=== PATIENT | female | born 1970 ===

== ENCOUNTER 2018-05-07 11:00 | Inpatient (IN) | payer MEDICAID, OTHER ==
[2018-05-07 11:41] VITALS: BMI 25.2
[2018-05-07] MEDS ORDERED: Sodium Chloride 0.9% 1,000 ML IV STA (12:48)
[2018-05-07 13:24] LABS: BASO % 0.7 % (0.0-2.0); EOS # 0.1 K/uL (0.0-0.7); HEMOGLOBIN 6.8 g/dL (12.0-16.0); LYMPH # 2.4 K/uL (1.0-4.3); LYMPH % 37.2 % (20.0-40.0); MEAN CORPUSCULAR HEMOGLOBIN 19.1 pg (27.0-31.0); MEAN PLATELET VOLUME 7.9 fl (7.2-11.7); MONO # 0.6 K/uL (0.0-0.8); MONO % 9.6 % (0.0-10.0); NEUT # 3.3 K/uL (1.8-7.0); NEUT % 50.5 % (50.0-75.0); NRBC % 0.1 % (0.0-0.0); RBC 3.56 Mil/uL (3.80-5.20); RED CELL DISTRIBUTION WIDTH 18.1 % (11.5-14.5); WHITE BLOOD COUNT 6.5 K/uL (4.8-10.8)
--- NOTE | 2018-05-07 13:29 | ED PDOC ---
HPI: Female Pain Time Seen by Provider: 05/07/18 12:31 Chief Complaint (Nursing): Female Genitourinary Chief Complaint (Provider): vaginal bleeding History Per: Patient History/Exam Limitations: no limitations Onset/Duration Of Symptoms: Days (x3 weeks) Current Symptoms Are (Timing): Still Present Associated Symptoms: denies: Fever, Chills, Nausea, Vomiting, Diarrhea, Urinary Symptoms Additional Complaint(s): Suha Tapia is a 47 year old female, with a past medical history of anemia, asthma and ovarian cysts, who presents to the emergency department for evaluation of vaginal bleeding onset for x3 weeks. She reports intermittent bleeding at night time. Patient states she has an irregular period but it doesn't last more than x2 weeks prompting ED visit. Patient states she's never had blood transfusion before and takes iron IV for anemia. Patient also reports dizziness described as lightheadedness after she hit her head with the trunk of her car. She denies any dysuria, fever, chills, nausea, vomit, diarrhea, vision changes, abdominal pain, cough, congestion, chest pain, shortness of breath, weakness, numbness or tingling. No further medical complaints. Tetanus is up to date. PMD: Dr. Eliseo Cole. Past Medical History Reviewed: Historical Data, Nursing Documentation, Vital Signs Vital Signs: Last Vital Signs Temp 97.9 F 05/07/18 11:40 Pulse 87 05/07/18 11:40 Resp 18 05/07/18 11:40 BP 117/72 05/07/18 11:40 Pulse Ox 98 05/07/18 11:40 - Medical History PMH: Anemia, Anxiety, Asthma, Kidney Stones - Surgical History Other surgeries: ovarian cysts - Family History Family History: States: Unknown Family Hx - Immunization History Hx Tetanus Toxoid Vaccination: No Hx Influenza Vaccination: No Hx Pneumococcal Vaccination: No - Home Medications Home Medications: Ambulatory Orders Medication Instructions Recorded Montelukast [Singulair] 10 mg PO DAILY 06/17/17 Naproxen 375 mg PO TIDPC #20 tablet 06/17/17 Lorazepam [Ativan] 0.5 mg PO Q12H PRN #6 tab 10/30/17 Meclizine [Meclizine*] 1 tab PO Q6 PRN #30 tab 10/30/17 - Allergies Allergies/Adverse Reactions: Allergies Allergy/AdvReac Type Severity Reaction Status Date / Time shellfish derived Allergy Verified 01/28/18 02:03 seafood Allergy Intermediate RASH Uncoded 01/28/18 02:03 Review of Systems ROS Statement: Except As Marked, All Systems Reviewed And Found Negative Constitutional: Negative for: Fever, Chills Eyes: Negative for: Vision Change ENT: Negative for: Nose Congestion Cardiovascular: Negative for: Chest Pain Respiratory: Negative for: Cough, Shortness of Breath Gastrointestinal: Negative for: Nausea, Vomiting, Abdominal Pain, Diarrhea Genitourinary Female: Positive for: Vaginal Bleeding. Negative for: Dysuria Neurological: Positive for: Dizziness (lightheadedness). Negative for: Weakness, Numbness (tingling) Physical Exam - Reviewed Nursing Documentation Reviewed: Yes Vital Signs Reviewed: Yes - Physical Exam Appears: Positive for: Uncomfortable Head Exam: Positive for: ATRAUMATIC, NORMAL INSPECTION, NORMOCEPHALIC Skin: Positive for: Normal Color, Warm, Dry Eye Exam: Positive for: Normal appearance, EOMI, PERRL ENT: Positive for: Other (1 cm superficial linear laceration to left lateral eyebrow with mild tenderness) Neck: Positive for: Normal, Painless ROM Cardiovascular/Chest: Positive for: Regular Rate, Rhythm. Negative for: Murmur Respiratory: Positive for: Normal Breath Sounds. Negative for: Respiratory Distress Gastrointestinal/Abdominal: Positive for: Normal Exam, Soft. Negative for: Tenderness, Guarding, Rebound Back: Positive for: Normal Inspection. Negative for: L CVA Tenderness, R CVA Tenderness, Vertebral Tenderness Extremity: Positive for: Normal ROM (upper and lower extremities). Negative for: Deformity, Swelling Neurologic/Psych: Positive for: Alert, Oriented, Gait (steady) - Laboratory Results Result Diagrams: 05/07/18 13:13 05/07/18 13:13 Interpretation Of Abn Labs: 6.8 HG - ECG O2 Sat by Pulse Oximetry: 98 (RA) Pulse Ox Interpretation: Normal - Other Rad US X-Ray: Read By Radiologist X-Ray Interpretation: fibroids; structures in uterus - CT Scan/US ct Other Rad Studies (CT/US): Read By Radiologist Other Rad Interpretation: no acute - Progress ED Course And Treament: 1552: Pt. refuses blood transfusion. Aware of possible or decreased functioning from anemia. Wants iron infusion that she has gotten in the past and regularly usually. Pt. aware that is not standard first line treatment for acute anemia. Spoke with Dr. Alexis who admits for Dr. Eliseo Cole. He will admit and wants Dr. Celena Malrow on consult. Pending Call back from Dr. Celena Malrow. 1633: Spoke with Dr. Brenda Marlow. Wants pt. to get venofer 200mg IV piggy back over 30min x 2. Aware of all labs and findings/pt. presentation. Aware pt. does not want blood transfusion. - Critical Care Total Time (In Min): 30 Documented Critical Care: Time excludes all time spent performint seperately billable procedures Medical Decision Making Medical Decision Making: Time: 12:31 Initial Impression: Vaginal bleeding and minor head injury Initial Plan: --Head w/o contrast [CT] --BMP --Urine --Urine dipstick --CBC w/ differential --PTT --PT --Sodium Chloride 1,000 ml IV 1,000 mls/hr --Transvaginal US --Reevaluation 14:[address] FINDINGS: HEMORRHAGE: No intracranial hemorrhage. Hello hello BRAIN: No mass effect or edema. No atrophy or chronic microvascular ischemic changes. VENTRICLES: Unremarkable. No hydrocephalus. CALVARIUM: Unremarkable. PARANASAL SINUSES: Unremarkable as visualized. No significant inflammatory changes. MASTOID AIR CELLS: Unremarkable as visualized. No inflammatory changes. OTHER FINDINGS: None. IMPRESSION: No acute intracranial hemorrhage. 14:09 Transvaginal US FINDINGS: UTERUS: Measures 8.5 x 5.5 x 7.0 cm. Normal in size and appearance. . There are least 2 discrete uterine fibroids 1 measuring 1.0 x 0.7 x 0.9 cm and the 2nd measuring 1.4 x 1.0 x 1.4 cm ENDOMETRIUM: Measures 6.0 mm in diameter. .. There is a somewhat hyperechoic 7.6 cm echogenic focus within the endometrium that could represent clot. The possibility of endometrial hyperplasia, endometrial polyps or less likely endometrial carcinoma. Recommend follow-up PAPER CAP MACHINE OPERATOR consultation; consider hysteros copy CERVIX: Multiple nabothian cysts are present. RIGHT OVARY: Not visualized LEFT OVARY: Measures 1.8 x 1.8 x 1.8 cm. No solid mass. Normal flow. FREE FLUID: No significant free fluid noted. OTHER FINDINGS: None. IMPRESSION: There is a somewhat elliptical shaped 7.6 mm echogenic focus within the endometrial canal which is of uncertain etiology. This could represent clot however endometrial hyperplasia polyps or less likely endometrial carcinoma not excluded. Uterine fibroids are also present. Cervical nabothian cysts are present. Follow-up PAPER CAP MACHINE OPERATOR consultation recommended. Consider hysteroscopy. Right ovary not visualized. Right ovary not visualized. Scribe Attestation: Documented by Nilson Villaseñor, acting as a scribe for Art Marie MD. Provider Scribe Attestation: All medical record entries made by the Scribe were at my direction and personal ly dictated by me. I have reviewed the chart and agree that the record accurately reflects my personal performance of the history, physical exam, medical decision making, and the department course for this patient. I have also personally directed, reviewed, and agree with the discharge instructions and disposition. Disposition - Clinical Impression Clinical Impression: Anemia - Patient ED Disposition Is Patient to be Admitted: Yes Counseled Patient/Family Regarding: Studies Performed, Diagnosis - Disposition Disposition Time: 16:34 Condition: FAIR - Pt Status Changed To: Hospital Disposition Of: Observation - POA Present On Arrival: None
[2018-05-07 13:33] LABS: BLOOD UREA NITROGEN 12 mg/dl (7-17); GFR NON-AFRICAN AMERICAN > 60
[2018-05-07 13:52] LABS: PROTHROMBIN TIME 11.7 Seconds (9.8-13.1)
[2018-05-07 13:55] LABS: PARTIAL THROMBOPLASTIN TIME 29.8 Seconds (25.6-37.1)
--- NOTE | 2018-05-07 14:06 | CT ---
Date of service: 05/07/2018 PROCEDURE: CT HEAD WITHOUT CONTRAST. HISTORY: headache COMPARISON: None available. TECHNIQUE: Axial computed tomography images were obtained through the head/brain without intravenous contrast. Radiation dose: Total exam DLP = 765.04 mGy-cm. This CT exam was performed using one or more of the following dose reduction techniques: Automated exposure control, adjustment of the mA and/or kV according to patient size, and/or use of iterative reconstruction technique. FINDINGS: HEMORRHAGE: No intracranial hemorrhage. Hello hello BRAIN: No mass effect or edema. No atrophy or chronic microvascular ischemic changes. VENTRICLES: Unremarkable. No hydrocephalus. CALVARIUM: Unremarkable. PARANASAL SINUSES: Unremarkable as visualized. No significant inflammatory changes. MASTOID AIR CELLS: Unremarkable as visualized. No inflammatory changes. OTHER FINDINGS: None. IMPRESSION: No acute intracranial hemorrhage.
--- NOTE | 2018-05-07 14:22 | US ---
Date of service: 05/07/2018 HISTORY: vaginal bleeding COMPARISON: None available. TECHNIQUE: Transvaginal sonographic evaluation of the pelvis performed FINDINGS: UTERUS: Measures 8.5 x 5.5 x 7.0 cm. Normal in size and appearance. . There are least 2 discrete uterine fibroids 1 measuring 1.0 x 0.7 x 0.9 cm and the 2nd measuring 1.4 x 1.0 x 1.4 cm ENDOMETRIUM: Measures 6.0 mm in diameter. .. There is a somewhat hyperechoic 7.6 cm echogenic focus within the endometrium that could represent clot. The possibility of endometrial hyperplasia, endometrial polyps or less likely endometrial carcinoma. Recommend follow-up JAVA PROGRAMMER consultation; consider hysteroscopy CERVIX: Multiple nabothian cysts are present. RIGHT OVARY: Not visualized LEFT OVARY: Measures 1.8 x 1.8 x 1.8 cm. No solid mass. Normal flow. FREE FLUID: No significant free fluid noted. OTHER FINDINGS: None. IMPRESSION: There is a somewhat elliptical shaped 7.6 mm echogenic focus within the endometrial canal which is of uncertain etiology. This could represent clot however endometrial hyperplasia polyps or less likely endometrial carcinoma not excluded. Uterine fibroids are also present. Cervical nabothian cysts are present. Follow-up JAVA PROGRAMMER consultation recommended. Consider hysteroscopy. Right ovary not visualized. Right ovary not visualized.
[2018-05-07 15:46] LABS: MEAN CELL VOLUME 63.5 fl (81.0-99.0)
[2018-05-07 18:18] LABS: IRON < 10 ug/dL (37-170)
[2018-05-07 18:43] LABS: % IRON SATURATION 2.21 % (20-55)
[2018-05-07 18:44] LABS: TOTAL IRON BINDING CAPACITY 452 ug/dL (250-450)
[2018-05-07] MEDS: Fluticasone-Salmeterol 250-50mcg Diskus INH SCH (22:27)
[2018-05-08 08:30] LABS: MEAN CELL VOLUME 63.7 fl (81.0-99.0); MEAN CORPUSCULAR HEMOGLOBIN 19.4 pg (27.0-31.0); MEAN CORPUSCULAR HGB CONC 30.5 g/dL (33.0-37.0); RBC 3.35 Mil/uL (3.80-5.20); RED CELL DISTRIBUTION WIDTH 18.3 % (11.5-14.5); WHITE BLOOD COUNT 6.8 K/uL (4.8-10.8)
[2018-05-08 08:39] LABS: HEMOGLOBIN 6.5 g/dL (12.0-16.0)
--- NOTE | 2018-05-08 08:51 | CP.PCM.CON ---
<Jenni Castaneda - Last Filed: 05/08/18 09:27> History of Present Illness - History of Present Illness History of Present Illness: Consult note for TAXONOMIST. Suha is a 47 year old female, with a past medical history of anemia, asthma, panic attacks and depression, we were asked to see her for evaluation of vaginal bleeding onset for x3 weeks. Patient states she has an irregular period since September lasting 1 week but in February she reported period lasted 2 weeks. Patient states regular periods every month previously. Patient also reports mild dizziness but she endorses was yesterday after she hit her head with the trunk of her car. She denies any dysuria, fever, chills, nausea, vomit, diarrhea, vision changes, abdominal pain, chest pain, shortness of breath, weakness, numbness or tingling. No further medical complaints. Patient states she's never had blood transfusion before and takes iron IV for anemia. She follows her primary heme Dr in [place]. She does not have primary CASSANDRA DEVELOPER doctor and endorses last time she saw one was in September and was told she has 2 cyst behind the uterus. PMD: Dr. Eliseo Cole. Heme: Dr Quarles PMH: asthma, anemia, depression and panic attacks TAXONOMIST: , x1 and C/S x1 (twins), Menarche at age 14, no hx of STD, no hx of abnormal Pap smears. PSH: lithotrypsis FMH: mom with DM, CAD Aunt with hx of colon cancer, and other aunt from "blood cancer" Denies family hx of ovarian, breast and uterine cancer. Meds: see bellow Allergies: shellfish, latex SH: denies etoh, tobacco or ilicit drugs use Review of Systems - Review of Systems All systems: reviewed and no additional remarkable complaints except (HPI) Past Patient History - Infectious Disease Hx of Infectious Diseases: None - Past Medical History & Family History Past Medical History?: Yes - Past Social History Smoking Status: Never Smoked - CARDIAC Other/Comment: history of asthma and kidney stones - PULMONARY Hx Asthma: Yes - RENAL Hx Kidney Stones: Yes - HEMATOLOGICAL/ONCOLOGICAL Hx Anemia: Yes Hx Blood Transfusions: No - MUSCULOSKELETAL/RHEUMATOLOGICAL Hx Falls: No - PSYCHIATRIC Hx Anxiety: Yes Hx Substance Use: No - SURGICAL HISTORY Hx Section: Yes Other/Comment: sx kidney stone removal - ANESTHESIA Hx Anesthesia: Yes Hx Anesthesia Reactions: Yes Meds Allergies/Adverse Reactions: Allergies Allergy/AdvReac Type Severity Reaction Status Date / Time shellfish derived Allergy Verified 01/28/18 02:03 seafood Allergy Intermediate RASH Uncoded 01/28/18 02:03 - Medications Medications: Current Medications Iron Sucrose 200 mg/ Sodium (Chloride) 110 mls @ 200 mls/hr IVPB DAILY BECKA Stop: 05/08/18 09:32 Last Admin: 05/07/18 19:54 Dose: 200 mls/hr Montelukast Sodium (Singulair) 10 mg PO HS BECKA Last Admin: 05/07/18 22:27 Dose: 10 mg Fluticasone/Salmeterol (Advair Diskus 250/50) 1 puff INH HS BECKA Last Admin: 05/07/18 22:27 Dose: 1 puff Physical Exam - Constitutional Appears: No Acute Distress - Head Exam Head Exam: NORMAL INSPECTION - Respiratory Exam Respiratory Exam: Clear to Auscultation Bilateral - Cardiovascular Exam Cardiovascular Exam: REGULAR RHYTHM, +S1, +S2. absent: Tachycardia, Systolic Murmur - GI/Abdominal Exam GI & Abdominal Exam: Normal Bowel Sounds, Soft. absent: Distended, Tenderness - Exam External exam: NORMAL EXTERNAL EXAM. absent: Lacerations, Lesions Speculum exam: NORMAL SPECULUM EXAM (scant blood noted on vagina, no discharge appreciated). absent: Laceration Bimanual exam: absent: Adenexal Mass, Cervical Motion Tendernes, Uterine Enlargement, Uterine Tenderness - Extremities Exam Extremities exam: Negative for: calf tenderness, pedal edema - Neurological Exam Neurological exam: Alert, CN II-XII Intact, Oriented x3 - Skin Skin Exam: Dry, Warm Results - Vital Signs Recent Vital Signs: Last Vital Signs Temp 98.6 F 05/08/18 08:05 Pulse 83 05/08/18 08:05 Resp 20 05/08/18 08:05 BP 123/71 05/08/18 08:05 Pulse Ox 97 05/08/18 08:05 - Labs Result Diagrams: 05/08/18 05:25 05/07/18 13:13 Labs: Laboratory Results - last 24 hr 05/07/18 05/07/18 05/07/18 13:13 13:13 13:13 WBC 6.5 RBC 3.56 L Hgb 6.8 L Hct 22.6 L MCV 63.5 L MCH 19.1 L MCHC 30.0 L RDW 18.1 H Plt Count 446 H MPV 7.9 Neut % (Auto) 50.5 Lymph % (Auto) 37.2 [place] % (Auto) 9.6 Eos % (Auto) 2.0 Baso % (Auto) 0.7 Neut # (Auto) 3.3 Lymph # (Auto) 2.4 [place] # (Auto) 0.6 Eos # (Auto) 0.1 Baso # (Auto) 0.0 Retic Count PT 11.7 INR 1.0 APTT 29.8 Sodium 139 Potassium 4.2 Chloride 107 Carbon Dioxide 27 Anion Gap 9 L BUN 12 Creatinine 0.5 L Est GFR ( Amer) > 60 Est GFR (Non-Af Amer) > 60 Random Glucose 108 H Calcium 9.0 Iron TIBC % Saturation Ferritin Blood Type Blood Type Confirm Antibody Screen BBK History Checked 05/07/18 05/07/18 05/07/18 16:17 17:20 17:37 WBC RBC Hgb Hct MCV MCH MCHC RDW Plt Count MPV Neut % (Auto) Lymph % (Auto) [place] % (Auto) Eos % (Auto) Baso % (Auto) Neut # (Auto) Lymph # (Auto) [place] # (Auto) Eos # (Auto) Baso # (Auto) Retic Count 1.7 H PT INR APTT Sodium Potassium Chloride Carbon Dioxide Anion Gap BUN Creatinine Est GFR ( Amer) Est GFR (Non-Af Amer) Random Glucose Calcium Iron TIBC % Saturation Ferritin Blood Type A POSITIVE Blood Type Confirm A POSITIVE Antibody Screen Negative BBK History Checked No verified bt 05/07/18 05/07/18 05/08/18 17:49 17:57 05:25 WBC 6.8 RBC 3.35 L Hgb 6.5 L* Hct 21.4 L MCV 63.7 L MCH 19.4 L MCHC 30.5 L RDW 18.3 H Plt Count 399 MPV Neut % (Auto) Lymph % (Auto) [place] % (Auto) Eos % (Auto) Baso % (Auto) Neut # (Auto) Lymph # (Auto) [place] # (Auto) Eos # (Auto) Baso # (Auto) Retic Count PT INR APTT Sodium Potassium Chloride Carbon Dioxide Anion Gap BUN Creatinine Est GFR ( Amer) Est GFR (Non-Af Amer) Random Glucose Calcium Iron < 10 L TIBC 452 H % Saturation 2.21 L Ferritin 3.6 L Blood Type Blood Type Confirm Antibody Screen BBK History Checked Assessment & Plan - Assessment and Plan (Free Text) Assessment: 47 yo female with h/o anemia and irreugular periods now with abnormal uterine bleeding for 3 weeks and anemia. Plan: - anemia likely 2/2 to blood loss - H/H 6.5/21.4 - patient refuses transfusion at this time, s/p IV venofer 2 bags. - TVUS: elliptical shaped 7.6 mm echogenic focus in endometrial canal could represent clot or endometrial hyperplasia or polyp. Uterine fibroids noted. Normal left ovarian, R no visualized. - Head CT: negative for fx or bleeding - Recommendations/encouraged for f/u with CASSANDRA DEVELOPER as outpatient - f/u with Dr Quarles in her office Case seen and evaluated with Dr Borden. <Amy Borden - Last Filed: 05/08/18 14:36> Meds - Medications Medications: Current Medications Montelukast Sodium (Singulair) 10 mg PO HS BECKA Last Admin: 05/07/18 22:27 Dose: 10 mg Fluticasone/Salmeterol (Advair Diskus 250/50) 1 puff INH HS BECKA Last Admin: 05/07/18 22:27 Dose: 1 puff Results - Vital Signs Recent Vital Signs: Last Vital Signs Temp 98.6 F 05/08/18 08:05 Pulse 83 05/08/18 08:05 Resp 20 05/08/18 08:05 BP 123/71 05/08/18 08:05 Pulse Ox 97 05/08/18 08:05 - Labs Result Diagrams: 05/08/18 05:25 05/07/18 13:13 Labs: Laboratory Results - last 24 hr 05/07/18 05/07/18 05/07/18 13:13 16:17 17:20 WBC RBC Hgb Hct MCV 63.5 L MCH MCHC RDW Plt Count Retic Count Iron TIBC % Saturation Ferritin Blood Type A POSITIVE Blood Type Confirm A POSITIVE Antibody Screen Negative BBK History Checked No verified bt 05/07/18 05/07/18 05/07/18 17:37 17:49 17:57 WBC RBC Hgb Hct MCV MCH MCHC RDW Plt Count Retic Count 1.7 H Iron < 10 L TIBC 452 H % Saturation 2.21 L Ferritin 3.6 L Blood Type Blood Type Confirm Antibody Screen BBK History Checked 05/08/18 05:25 WBC 6.8 RBC 3.35 L Hgb 6.5 L* Hct 21.4 L MCV 63.7 L MCH 19.4 L MCHC 30.5 L RDW 18.3 H Plt Count 399 Retic Count Iron TIBC % Saturation Ferritin Blood Type Blood Type Confirm Antibody Screen BBK History Checked Assessment & Plan - Assessment and Plan (Free Text) Assessment: OB Hospitalist Addendum: Patient seen and examined by me. Agree w/ above. 47 yo LMP started about 3 weeks ago, bleeds mostly at night w/ anemia most likely d/t vaginal bleeding. Pt reports monthly periods, usually last a week but sometimes last 2 weeks. Pt reports that she bled x 2 weeks in September and in February. Pt reports that she has received iron transfusions in the past as an outpt with Dr. Quarles, a educational interpreter. Pt currently w/no bleeding. Reviewed pelvic scan results w/ her. Pt encouraged to f/u w/ software test engineer clinic as an outpt for endometrial sampling and possible hysteroscopy. (ES)
--- NOTE | 2018-05-08 09:44 | CP.PCM.CON ---
History of Present Illness - History of Present Illness History of Present Illness: This is a 47 yrs old female who was adnitted for severe anemia. Her hgb in the ED was 6.8 gms and with a MCV of 63and slightly elevated [id number].Her retic was 1.3. The iron was 10, tibc 452, sat 2.2 and ferritin 3.6. She has a h /o heavy vaginal bleedingfr the last year or so. she refuses transfusion, but gets iv iron q [address] Quarles's office. She still has to see an FILM EDITOR but will do so as soon as she is discharged. She is also anxious but I explained to her that her Hgb is only 6.5 gms and giving her just venofer will work in a week or so , not immediately. She needs a total of 1000mgs of iron. She received 200 mg yesterday and today. She will get 300 mg on wednesday and wednesday, and hopefully her count will go up in a week and she can see the FILM EDITOR. Past h/o asthma and anemia Past Patient History - Infectious Disease Hx of Infectious Diseases: None - Past Medical History & Family History Past Medical History?: Yes - Past Social History Smoking Status: Never Smoked - CARDIAC Other/Comment: history of asthma and kidney stones - PULMONARY Hx Asthma: Yes - RENAL Hx Kidney Stones: Yes - HEMATOLOGICAL/ONCOLOGICAL Hx Anemia: Yes Hx Blood Transfusions: No - MUSCULOSKELETAL/RHEUMATOLOGICAL Hx Falls: No - PSYCHIATRIC Hx Anxiety: Yes Hx Substance Use: No - SURGICAL HISTORY Hx Section: Yes Other/Comment: sx kidney stone removal - ANESTHESIA Hx Anesthesia: Yes Hx Anesthesia Reactions: Yes Meds Allergies/Adverse Reactions: Allergies Allergy/AdvReac Type Severity Reaction Status Date / Time shellfish derived Allergy Verified 01/28/18 02:03 seafood Allergy Intermediate RASH Uncoded 01/28/18 02:03 - Medications Medications: Current Medications Montelukast Sodium (Singulair) 10 mg PO HS BECKA Last Admin: 05/07/18 22:27 Dose: 10 mg Fluticasone/Salmeterol (Advair Diskus 250/50) 1 puff INH HS BECKA Last Admin: 05/07/18 22:27 Dose: 1 puff Physical Exam - Additional Findings Additional findings: Physical exam; Alert,well oriented in no a cute distress neck; supple, no adenopathy Chest; clear, no rales or rhonche Heart, rsr, no murmur Abd; Soft,no massor h/s megaly Results - Vital Signs Recent Vital Signs: Last Vital Signs Temp 98.6 F 05/08/18 08:05 Pulse 83 05/08/18 08:05 Resp 20 05/08/18 08:05 BP 123/71 05/08/18 08:05 Pulse Ox 97 05/08/18 08:05 - Labs Result Diagrams: 05/08/18 05:25 05/07/18 13:13 Labs: Laboratory Results - last 24 hr 05/07/18 05/07/18 05/07/18 13:13 13:13 13:13 WBC 6.5 RBC 3.56 L Hgb 6.8 L Hct 22.6 L MCV 63.5 L MCH 19.1 L MCHC 30.0 L RDW 18.1 H Plt Count 446 H MPV 7.9 Neut % (Auto) 50.5 Lymph % (Auto) 37.2 [place] % (Auto) 9.6 Eos % (Auto) 2.0 Baso % (Auto) 0.7 Neut # (Auto) 3.3 Lymph # (Auto) 2.4 [place] # (Auto) 0.6 Eos # (Auto) 0.1 Baso # (Auto) 0.0 Retic Count PT 11.7 INR 1.0 APTT 29.8 Sodium 139 Potassium 4.2 Chloride 107 Carbon Dioxide 27 Anion Gap 9 L BUN 12 Creatinine 0.5 L Est GFR ( Amer) > 60 Est GFR (Non-Af Amer) > 60 Random Glucose 108 H Calcium 9.0 Iron TIBC % Saturation Ferritin Blood Type Blood Type Confirm Antibody Screen BBK History Checked 05/07/18 05/07/18 05/07/18 16:17 17:20 17:37 WBC RBC Hgb Hct MCV MCH MCHC RDW Plt Count MPV Neut % (Auto) Lymph % (Auto) [place] % (Auto) Eos % (Auto) Baso % (Auto) Neut # (Auto) Lymph # (Auto) [place] # (Auto) Eos # (Auto) Baso # (Auto) Retic Count 1.7 H PT INR APTT Sodium Potassium Chloride Carbon Dioxide Anion Gap BUN Creatinine Est GFR ( Amer) Est GFR (Non-Af Amer) Random Glucose Calcium Iron TIBC % Saturation Ferritin Blood Type A POSITIVE Blood Type Confirm A POSITIVE Antibody Screen Negative BBK History Checked No verified bt 05/07/18 05/07/18 05/08/18 17:49 17:57 05:25 WBC 6.8 RBC 3.35 L Hgb 6.5 L* Hct 21.4 L MCV 63.7 L MCH 19.4 L MCHC 30.5 L RDW 18.3 H Plt Count 399 MPV Neut % (Auto) Lymph % (Auto) [place] % (Auto) Eos % (Auto) Baso % (Auto) Neut # (Auto) Lymph # (Auto) [place] # (Auto) Eos # (Auto) Baso # (Auto) Retic Count PT INR APTT Sodium Potassium Chloride Carbon Dioxide Anion Gap BUN Creatinine Est GFR ( Amer) Est GFR (Non-Af Amer) Random Glucose Calcium Iron < 10 L TIBC 452 H % Saturation 2.21 L Ferritin 3.6 L Blood Type Blood Type Confirm Antibody Screen BBK History Checked Assessment & Plan - Assessment and Plan (Free Text) Assessment: impression; Severe iron deficiency anemia secondary to vaginal bleeding. Plan: Plan; It is important that pt see a ordained minister as soon as possible. her vaginal ultrasound showed a 7.5 cm ? mass in the endometrium ?clot, endometriosis, /fibroid which needs to be looked into As long as she is here i will give her 300 mg venofer tomorrow and 300 mg on wednesday morning after which she can be discharged. - Date & Time Date: 05/08/18 Time: 10:00
[2018-05-08] MEDS ORDERED: Epoetin Alfa 20000 UNIT/ML Inj SC ONE (14:45)
[2018-05-08] MEDS: Fluticasone-Salmeterol 250-50mcg Diskus INH SCH (21:17)
--- NOTE | 2018-05-09 10:58 | CP.PCM.PN ---
Subjective - Date & Time of Evaluation Date of Evaluation: 05/09/18 Time of Evaluation: 10:56 - Subjective Subjective: Pt feels better, and is tolerating the IV iron well She will receive 300 mg today and 300 mg tomorrow after which she will be discharged and see the INVESTIGATIVE AGENT immediately Objective - Vital Signs/Intake and Output Vital Signs (last 24 hours): Temp Pulse Resp BP Pulse Ox 98.3 F 81 19 96/62 L 97 05/09/18 08:21 05/09/18 08:21 05/09/18 08:21 05/09/18 08:21 05/09/18 08:21 - Medications Medications: Current Medications Acetaminophen (Tylenol 325mg Tab) 650 mg PO Q6 PRN PRN Reason: Headache Last Admin: 05/09/18 08:33 Dose: 650 mg Iron Sucrose 300 mg/ Sodium (Chloride) 265 mls @ 88.333 mls/hr IVPB DAILY BECKA Stop: 05/10/18 11:59 Montelukast Sodium (Singulair) 10 mg PO HS BECKA Last Admin: 05/08/18 21:17 Dose: 10 mg Fluticasone/Salmeterol (Advair Diskus 250/50) 1 puff INH HS BECKA Last Admin: 05/08/18 21:17 Dose: 1 puff - Labs Labs: 05/08/18 05:25 05/07/18 13:13 PT 11.7 Seconds (9.8-13.1) 05/07/18 13:13 INR 1.0 05/07/18 13:13 APTT 29.8 Seconds (25.6-37.1) 05/07/18 13:13
[2018-05-09 15:25] LABS: HEMOGLOBIN 6.9 g/dL (12.0-16.0); MEAN CELL VOLUME 63.3 fl (81.0-99.0); MEAN CORPUSCULAR HEMOGLOBIN 19.6 pg (27.0-31.0); MEAN CORPUSCULAR HGB CONC 30.9 g/dL (33.0-37.0); RBC 3.53 Mil/uL (3.80-5.20); RED CELL DISTRIBUTION WIDTH 18.3 % (11.5-14.5); WHITE BLOOD COUNT 8.8 K/uL (4.8-10.8)
[2018-05-09 15:28] LABS: BLOOD UREA NITROGEN 14 mg/dl (7-17); CALCIUM 9.3 mg/dL (8.4-10.2); GFR NON-AFRICAN AMERICAN > 60
[2018-05-09] MEDS: Fluticasone-Salmeterol 250-50mcg Diskus INH SCH (21:55)
[2018-05-10 00:39] VITALS: RESP 19; TEMP 98.1
[2018-05-10 06:30] LABS: HEMOGLOBIN 7.3 g/dL (12.0-16.0); MEAN CELL VOLUME 64.2 fl (81.0-99.0); MEAN CORPUSCULAR HEMOGLOBIN 19.7 pg (27.0-31.0); MEAN CORPUSCULAR HGB CONC 30.6 g/dL (33.0-37.0); RBC 3.71 Mil/uL (3.80-5.20); RED CELL DISTRIBUTION WIDTH 18.1 % (11.5-14.5); WHITE BLOOD COUNT 10.2 K/uL (4.8-10.8)
[2018-05-10 08:41] VITALS: BP 98/55; PULSE 78; O2SAT 100
--- NOTE | 2018-05-10 11:41 | CP.PCM.PN ---
Subjective - Date & Time of Evaluation Date of Evaluation: 05/10/18 Time of Evaluation: 11:39 - Subjective Subjective: Pt's Hgb is 7.3gms. She has received a total of 1000mg of iron during her hospital stay, which should tide her over until she sees a BARGE WORKER. Objective - Vital Signs/Intake and Output Vital Signs (last 24 hours): Temp Pulse Resp BP Pulse Ox 98.1 F 78 19 98/55 L 100 05/10/18 08:29 05/10/18 08:29 05/10/18 08:29 05/10/18 08:29 05/10/18 08:29 - Medications Medications: Current Medications Acetaminophen (Tylenol 325mg Tab) 650 mg PO Q6 PRN PRN Reason: Headache Last Admin: 05/09/18 21:54 Dose: 650 mg Iron Sucrose 300 mg/ Sodium (Chloride) 265 mls @ 88.333 mls/hr IVPB DAILY BECKA Stop: 05/10/18 11:59 Last Admin: 05/09/18 10:56 Dose: 88.333 mls/hr Montelukast Sodium (Singulair) 10 mg PO HS BECKA Last Admin: 05/09/18 21:54 Dose: 10 mg Fluticasone/Salmeterol (Advair Diskus 250/50) 1 puff INH HS BECKA Last Admin: 05/09/18 21:55 Dose: 1 puff - Labs Labs: 05/10/18 05:55 05/09/18 14:50 PT 11.7 Seconds (9.8-13.1) 05/07/18 13:13 INR 1.0 05/07/18 13:13 APTT 29.8 Seconds (25.6-37.1) 05/07/18 13:13
== END 2018-05-10 15:30 | disposition home or self-care (01) | DRG 761 ==
LOC: H.ER 11:00 → H.ERHOLD 16:32 → H.MEDSURG1 20:40 → OBSVTOIN 05-08 16:50
PROVIDERS: ADMIT Family Medicine; ATTEND Family Medicine
DX: N93.9 Abnormal uterine and vaginal bleeding, unspecified (principal); D50.0 Iron deficiency anemia secondary to blood loss (chronic); F41.0 Panic disorder [episodic paroxysmal anxiety]; J45.909 Unspecified asthma, uncomplicated; N88.8 Other specified noninflammatory disorders of cervix uteri; Z82.49 Family history of ischemic heart disease and other diseases of the circulatory system; Z87.442 Personal history of urinary calculi; F32.9 Major depressive disorder, single episode, unspecified; F41.9 Anxiety disorder, unspecified; D25.9 Leiomyoma of uterus, unspecified; Z53.29 Procedure and treatment not carried out because of patient's decision for other reasons

== ENCOUNTER 2018-10-22 23:22 | Emergency (ER) | payer SELFPAY ==
[2018-10-22 23:23] VITALS: BMI 25.2
[2018-10-23] MEDS ORDERED: Sodium Chloride 0.9% 1,000 ML IV STA (00:49)
--- NOTE | 2018-10-23 00:54 | ED PDOC ---
HPI: CCC, URI, Sore Throat Time Seen by Provider: 10/22/18 23:56 Chief Complaint (Nursing): Abdominal Pain Chief Complaint (Provider): cough x 2 weeks History Per: Patient History/Exam Limitations: no limitations Onset/Duration Of Symptoms: Days (2 weeks) Current Symptoms Are (Timing): Still Present Location Of Pain: Throat Associated Symptoms: Cough, Sputum Severity: Mild Additional Complaint(s): Patient is a 48 yo female PMHx of asthma and fibroids. Patient states she has had persistent cough x 2 weeks and sore throat. She also states she is concerned about her hemoglobin being low as she has history of anemia with heavy menses secondary to fibroids. Past Medical History Reviewed: Historical Data, Nursing Documentation, Vital Signs Vital Signs: Last Vital Signs Temp 98.9 F 10/22/18 23:49 Pulse 94 H 10/22/18 23:49 Resp 16 10/22/18 23:49 BP 152/98 H 10/22/18 23:49 Pulse Ox 99 10/22/18 23:49 - Medical History PMH: Anemia, Anxiety, Asthma, Kidney Stones - Surgical History Surgical History: No Surg Hx Other surgeries: endometrial bx, C section - Family History Family History: States: Unknown Family Hx - Social History Current smoker - smoking cessation education provided: No Drugs: Denies - Immunization History Hx Tetanus Toxoid Vaccination: No Hx Influenza Vaccination: No Hx Pneumococcal Vaccination: No - Home Medications Home Medications: Ambulatory Orders Medication Instructions Recorded Fluticasone/Salmeterol 250/50 1 puff INH HS 05/07/18 [Advair Diskus 250/50] Montelukast [Singulair] 10 mg PO HS 05/07/18 Ferrous Fumarate [Jesús-Sequel] 50 mg PO BID #60 tab 05/10/18 Azithromycin [Zithromax] 250 mg PO QAM #1 pkg 10/23/18 - Allergies Allergies/Adverse Reactions: Allergies Allergy/AdvReac Type Severity Reaction Status Date / Time shellfish derived Allergy Verified 01/28/18 02:03 seafood Allergy Intermediate RASH Uncoded 01/28/18 02:03 Review of Systems ROS Statement: Except As Marked, All Systems Reviewed And Found Negative ENT: Positive for: Throat Pain Respiratory: Positive for: Cough Gastrointestinal: Positive for: Abdominal Pain Physical Exam - Reviewed Nursing Documentation Reviewed: Yes Vital Signs Reviewed: Yes - Physical Exam Appears: Positive for: Non-toxic Head Exam: Positive for: ATRAUMATIC, NORMOCEPHALIC Skin: Positive for: Normal Color, Warm, Dry Eye Exam: Positive for: Normal appearance, EOMI, PERRL ENT: Positive for: Pharyngeal Erythema, Tonsillar Swelling. Negative for: Tonsillar Exudate Neck: Positive for: Normal, Painless ROM, Supple Cardiovascular/Chest: Positive for: Regular Rate, Rhythm Respiratory: Positive for: Normal Breath Sounds. Negative for: Rales, Rhonchi, Wheezing Gastrointestinal/Abdominal: Positive for: Normal Exam, Bowel Sounds, Soft. Negative for: Tenderness Back: Positive for: Normal Inspection. Negative for: L CVA Tenderness, R CVA Tenderness Extremity: Positive for: Normal ROM. Negative for: Tenderness, Pedal Edema Neurological/Psych: Positive for: Awake, Alert - Laboratory Results Result Diagrams: 10/23/18 01:03 10/23/18 01:03 - ECG O2 Sat by Pulse Oximetry: 99 Medical Decision Making Medical Decision Makin48 year old female with URI and heavy menstrual flow Labs, EKG, Chest Xray Labs reviewed show no clinically significant abnormalities Chest Xray NAD Patient stable for discharge DX URI [facility]U [facility] and [facility] Segura 2 days Disposition - Clinical Impression Clinical Impression: Upper respiratory infection - Disposition Disposition: Routine/Home Disposition Time: 02:42 Condition: STABLE Prescriptions: Azithromycin [Zithromax] 250 mg PO QAM #1 pkg Instructions: Viral Upper Respiratory Infection, Adult (DC) Forms: [facility] (Hungarian)
[2018-10-23 01:27] LABS: BASO % 0.5 % (0.0-2.0); EOS # 0.2 K/uL (0.0-0.7); HEMOGLOBIN 11.2 g/dL (12.0-16.0); LYMPH # 1.8 K/uL (1.0-4.3); LYMPH % 16.9 % (20.0-40.0); MEAN CELL VOLUME 87.2 fl (81.0-99.0); MEAN CORPUSCULAR HEMOGLOBIN 29.4 pg (27.0-31.0); MEAN CORPUSCULAR HGB CONC 33.8 g/dL (33.0-37.0); MEAN PLATELET VOLUME 8.8 fl (7.2-11.7); MONO % 8.9 % (0.0-10.0); NEUT # 7.7 K/uL (1.8-7.0); NEUT % 71.7 % (50.0-75.0); NRBC % 0.1 % (0.0-0.0); RBC 3.8 Mil/uL (3.80-5.20); RED CELL DISTRIBUTION WIDTH 13.9 % (11.5-14.5); WHITE BLOOD COUNT 10.7 K/uL (4.8-10.8)
[2018-10-23 01:39] LABS: ALB/GLOB RATIO 1.1 (1.0-2.1); BLOOD UREA NITROGEN 16 mg/dl (7-17); CALCIUM 8.9 mg/dL (8.4-10.2); GFR NON-AFRICAN AMERICAN > 60
[2018-10-23 01:45] LABS: ALT/SGPT 29 U/L (9-52); AST/SGOT 41 U/L (14-36)
[2018-10-23 02:55] VITALS: BP 146/84; PULSE 88; RESP 15; TEMP 98.8; O2SAT 98
--- NOTE | 2018-10-23 08:24 | RAD ---
Date of service: 10/23/2018 HISTORY: cough COMPARISON: Chest radiographs 06/01/2013. TECHNIQUE: Chest PA and lateral views FINDINGS: LUNGS: No active pulmonary disease. PLEURA: No significant pleural effusion identified. No pneumothorax apparent. CARDIOVASCULAR: No aortic atherosclerotic calcification present. Normal cardiac size. No pulmonary vascular congestion. OSSEOUS STRUCTURES: Scoliotic thoracolumbar spinal deformity again evident. VISUALIZED UPPER ABDOMEN: Normal. OTHER FINDINGS: None. IMPRESSION: No interval acute cardiopulmonary disease appreciated. Scoliotic spinal deformity reiterated.
--- NOTE | 2018-10-23 20:50 | CARD ---
APPROVED REPORT Date of service: 10/23/2018 EKG Measurement Heart [id number] <Conclusion> Normal sinus rhythm Slow R wave progression V1-4. Cannot exclude old ASMI CCR Abnormal ECG
== END 2018-10-23 02:55 | disposition home or self-care (01) ==
LOC: H.ER 23:22
DX: J06.9 Acute upper respiratory infection, unspecified (principal); D64.9 Anemia, unspecified; D25.9 Leiomyoma of uterus, unspecified